=== PATIENT | male | born 1990 | race Asian ===

== ENCOUNTER 2019-01-02 00:55 | Inpatient (IN) | payer MEDICAID ==
[~2019-01-02] VITALS: Ht 170.2 cm; Wt 52.2 kg
[2019-01-02] VITALS (22 sets, daily range): BP systolic 97–135; BP diastolic 55–81
[2019-01-02] MEDS ORDERED: LEXAPRO10 MG ORAL (00:59)
[2019-01-02 01:35] LABS: EOSINOPHILS % (AUTO) 1.3 % (0.0-3.0); HEMATOCRIT 48.7 % (42.0-52.0); HEMOGLOBIN 16.5 G/DL (14.2-18.0); LYMPHOCYTES % (AUTO) 34.7 % (20.0-45.0); MEAN CORPUSCULAR VOLUME 90 FL (80-99); MONOCYTES % (AUTO) 9.2 % (1.0-10.0); NEUTROPHILS % (AUTO) 53.9 % (45.0-75.0); PLATELET COUNT 230 K/UL (150-450); RED CELL DISTRIBUTION WIDTH 11.9 % (11.6-14.8); WHITE BLOOD COUNT 8.5 K/UL (4.8-10.8)
[2019-01-02 01:45] LABS: ANION GAP 10 mmol/L (5-15); BLOOD UREA NITROGEN 10 mg/dL (7-18); CALCIUM 9.1 MG/DL (8.5-10.1); CARBON DIOXIDE 28 MMOL/L (21-32); CHLORIDE 101 MMOL/L (98-107); CREATININE 0.9 MG/DL (0.55-1.30); POTASSIUM 3.3 MMOL/L (3.5-5.1); SODIUM 139 MMOL/L (136-145)
[2019-01-02] MEDS ORDERED: Activated Charcoal 50gm/240ml Btl ORAL ONE (01:45)
[2019-01-02 01:50] LABS: ALANINE AMINOTRANSFERASE 84 U/L (12-78); ALBUMIN 4.4 G/DL (3.4-5.0); ALBUMIN/GLOBULIN RATIO 1.2 (1.0-2.7); ALKALINE PHOSPHATASE 69 U/L (46-116); ASPARTATE AMINO TRANSFERASE 26 U/L (15-37); BILIRUBIN,TOTAL 0.3 MG/DL (0.2-1.0)
[2019-01-02] MEDS ORDERED: D5W IV ONE ×3 (02:15→06:15)
[2019-01-02] MEDS ORDERED: ACETADOTE IV ONE ×3 (02:15→06:15)
--- NOTE | 2019-01-02 03:55 | Emergency Room Report ---
History of Present Illness General Chief Complaint: Behavioral Complaint Source: Patient, EMS Present Illness HPI 28-year-old male presents ED for evaluation. Brought in by EMS for reported overdose on Tylenol. He told his conference reservationist that he ingested about 15 tablets of Tylenol around 11 PM. States he was trying to hurt himself. Upon arrival patient denies any pain. Denies any abdominal pain. Denies any nausea or vomiting. Denies hearing voices. States that he takes Lexapro. Denies alcohol or drug use. No other aggravating relieving factors. Denies any other associated symptoms Allergies: Coded Allergies: No Known Allergies (Unverified , 01/02/19) Patient History Past Medical History: psych hx Past Surgical History: none Pertinent Family History: none Social History: Denies: smoking, alcohol use, drug use Immunizations: UTD Reviewed Nursing Documentation: PMH: Agreed; PSxH: Agreed Nursing Documentation-PM Past Medical History: No History, Except For History Of Psychiatric Problem: Yes Review of Systems All Other Systems: negative except mentioned in HPI Physical Exam Vital Signs Date Time Temp Pulse Resp B/P (MAP) Pulse Ox O2 Delivery O2 Flow Rate FiO2 01/02/19 00:53 97.9 88 14 132/81 98 Room Air Sp02 EP Interpretation: reviewed, normal General Appearance: no apparent distress, alert, GCS 15, non-toxic Head: normocephalic, atraumatic Eyes: bilateral eye normal inspection, bilateral eye PERRL ENT: hearing grossly normal, normal pharynx, no angioedema, normal voice Neck: full range of motion, supple/symm/no masses Respiratory: chest non-tender, lungs clear, normal breath sounds, speaking full sentences Cardiovascular #1: regular rate, rhythm, no edema Cardiovascular #2: 2+ carotid (R), 2+ carotid (L), 2+ radial (R), 2+ radial (L) , 2+ dorsalis pedis (R), 2+ dorsalis pedis (L) Gastrointestinal: normal bowel sounds, non tender, soft, non-distended, no guarding, no rebound Rectal: deferred Genitourinary: normal inspection, no CVA tenderness Musculoskeletal: back normal, gait/station normal, normal range of motion, non- tender Neurologic: alert, oriented x3, responsive, motor strength/tone normal, sensory intact, speech normal Psychiatric: depressed affect, anxious Suicide Risk Assessment: Suicidal Ideation: Yes Had intent to initiate attempt: Yes Pt's plan for suicide attempt: Yes Has means to complete attempt: Yes Reflexes: 3+ bicep (R), 3+ bicep (L), 3+ tricep (R), 3+ tricep (L), 3+ knee (R) , 3+ knee (L) Skin: normal color, no rash, warm/dry, well hydrated Lymphatic: no adenopathy Procedures Critical Care Time Critical Care Time i. I feel this is a highly complex case requiring extensive working including EKG/Rhythm strip, Xray/CT/US, Blood/urine lab work, repeat exams while in ED, and administration of strong opiates/narcotics for pain control, admission to hospital or close patient follow up. Total time: 45 min bedside evaluation and treatment excludes procedures (EKG). Reason for critical care: tylenol overdose Possible complications: hypotension, hypertension, GA, shock, arrhythmias, metabolic acidosis, end organ damage, respiratory failure. Interventions: labs, IVFS, charcoal. initiation of NAC. repeat tylenol levels. admission to ICU Course: Patient presenting status post overdose on Tylenol. Placed on 5150 by [employer]. given charcoal. Initial Tylenol level 110; started on NAC. IV hydration continued. discussion with admitting physicain for ICU care Consultations: nursing staff, EMS, family Performed by: Dr Fu Tolerated well condition = critical j. because of unstable vital signs this patient had a condition that could potentially threaten life or limb. I feel this is a critical patient who required my full attention while patient was considered critical. Total Critical Care Time excluding procedures was greater than 45 minutes Medical Decision Making Diagnostic Impression: Primary Impression: Tylenol overdose Qualified Codes: T39.1X2A - Poisoning by 4-aminophenol derivatives, intentional self-harm, initial encounter Additional Impression: Suicide attempt ER Course Hospital Course 28-year-old male presents to ED status post overdose on Tylenol. Differential diagnoses include: tylenol toxicity, alcohol intoxication, psychosis Clinical course She placed on stretcher. On awake overnight monitor. After initial history and physical ordered labs, IV fluids, charcoal Labs reviewed-electrolytes okay, leukocytosis, hemoglobin/hematocrit stable, initial tylenol level 110.utox negative. ETOH negative EKG - NSR, no acute ischemic changes interpreted by me NAC initiated in ED. patient on 5150 hold and cannot be medically cleared Poison control contacted case discussed with Dr. Morales and he agreed to accept the patient to his service for further care and support i. I feel this is a highly complex case requiring extensive working including EKG/Rhythm strip, Xray/CT/US, Blood/urine lab work, repeat exams while in ED, and administration of strong opiates/narcotics for pain control, admission to hospital or close patient follow up. Diagnosis - tylenol overdose, suicide attempt admitted to ICU in critical condition Labs Test 01/02/19 01:05 01/02/19 01:20 01/02/19 02:02 Urine Opiates Screen Negative (NEGATIVE) Urine Barbiturates Screen Negative (NEGATIVE) Phencyclidine (PCP) Screen Negative (NEGATIVE) Urine Amphetamines Screen Negative (NEGATIVE) Urine Benzodiazepines Screen Negative (NEGATIVE) Urine Cocaine Screen Negative (NEGATIVE) Urine Marijuana (THC) Screen Negative (NEGATIVE) White Blood Count 8.5 K/UL (4.8-10.8) Red Blood Count 5.40 M/UL (4.70-6.10) Hemoglobin 16.5 G/DL (14.2-18.0) Hematocrit 48.7 % (42.0-52.0) Mean Corpuscular Volume 90 FL (80-99) Mean Corpuscular Hemoglobin 30.5 PG (27.0-31.0) Mean Corpuscular Hemoglobin Concent 33.8 G/DL (32.0-36.0) Red Cell Distribution Width 11.9 % (11.6-14.8) Platelet Count 230 K/UL (150-450) Mean Platelet Volume 5.6 FL (6.5-10.1) Neutrophils (%) (Auto) 53.9 % (45.0-75.0) Lymphocytes (%) (Auto) 34.7 % (20.0-45.0) Monocytes (%) (Auto) 9.2 % (1.0-10.0) Eosinophils (%) (Auto) 1.3 % (0.0-3.0) Basophils (%) (Auto) 1.0 % (0.0-2.0) Sodium Level 139 MMOL/L (136-145) Potassium Level 3.3 MMOL/L (3.5-5.1) Chloride Level 101 MMOL/L (98-107) Carbon Dioxide Level 28 MMOL/L (21-32) Anion Gap 10 mmol/L (5-15) Blood Urea Nitrogen 10 mg/dL (7-18) Creatinine 0.9 MG/DL (0.55-1.30) Estimat Glomerular Filtration Rate > 60 mL/min (>60) Glucose Level 101 MG/DL (74-106) Calcium Level 9.1 MG/DL (8.5-10.1) Total Bilirubin 0.3 MG/DL (0.2-1.0) Aspartate Amino Transf (AST/SGOT) 26 U/L (15-37) Alanine Aminotransferase (ALT/SGPT) 84 U/L (12-78) Alkaline Phosphatase 69 U/L (46-116) Total Protein 8.2 G/DL (6.4-8.2) Albumin 4.4 G/DL (3.4-5.0) Globulin 3.8 g/dL Albumin/Globulin Ratio 1.2 (1.0-2.7) Salicylates Level 0.6 ug/mL (2.8-20) Acetaminophen Level 110 MCG/ML (10-30) Serum Alcohol < 3 mg/dL Arterial Blood pH 7.285 (7.350-7.450) Arterial Blood Partial Pressure CO2 46.5 mmHg (35.0-45.0) Arterial Blood Partial Pressure O2 58.7 mmHg (75.0-100.0) Arterial Blood HCO3 21.6 mmol/L (22.0-26.0) Arterial Blood Oxygen Saturation 87.9 % (95-100) Arterial Blood Base Excess -5.2 (-2-2) Arben Test Positive EKG Diagnostic Results Rate: normal Rhythm: NSR ST Segments: no acute changes ASA given to the pt in ED: No Rhythm Strip Diag. Results EP Interpretation: yes Rhythm: NSR, no PVC's, no ectopy Last Vital Signs Date Time Temp Pulse Resp B/P (MAP) Pulse Ox O2 Delivery O2 Flow Rate FiO2 01/02/19 01:02 88 14 Room Air 01/02/19 01:02 97.9 132/81 98 Status: improved Disposition: ADMITTED INPATIENT Condition: Critical Referrals: NOT CHOSEN IPA/,REFERRING (PCP) Gwyn Fu MD Jan 02, 2019 03:55
[2019-01-02 06:04] LABS: ANION GAP 13 mmol/L (5-15); BLOOD UREA NITROGEN 6 mg/dL (7-18); CALCIUM 8.2 MG/DL (8.5-10.1); CARBON DIOXIDE 23 MMOL/L (21-32); CHLORIDE 106 MMOL/L (98-107); CREATININE 0.7 MG/DL (0.55-1.30); POTASSIUM 3.6 MMOL/L (3.5-5.1); SODIUM 142 MMOL/L (136-145)
[2019-01-02] MEDS ORDERED: ACETADOTE IV SCH ×3 (07:00→11:00)
[2019-01-02] MEDS ORDERED: D5W IV SCH ×3 (07:00→11:00)
[2019-01-02] MEDS: Heparin 5000 units/ml inj SUBQ SCH ×2 (09:00→20:41)
--- NOTE | 2019-01-02 09:29 | Pulmonolgy Critical Care Note ---
Critical Care - Asmt/Plan Problems: (1) Tylenol overdose (2) Suicide attempt Respiratory: monitor respiratory rate Cardiac: continue to monitor HR/BP Renal: F/U I&O, check electrolytes Gastrointestinal: hold feedings Endocrine: monitor blood sugar Hematologic: monitor H/H, transfuse if hgb<8.5 Neurologic: PRN Ativan, PRN Morphine, keep patient comfortable Prophylaxis: Protonix, Heparin Discussed with: nurses, consultants, other - suicide precaution, psych evaluation Critical Care - Objective Last 24 Hour Vital Signs Date Time Temp Pulse Resp B/P (MAP) Pulse Ox O2 Delivery O2 Flow Rate FiO2 01/02/19 06:00 76 17 97/61 99 Room Air 01/02/19 05:27 Room Air 01/02/19 05:00 73 24 111/71 100 Room Air 01/02/19 04:36 Room Air 01/02/19 04:20 98.0 70 17 110/73 100 Room Air 01/02/19 04:20 62 01/02/19 04:10 98.0 74 16 135/80 100 Room Air 01/02/19 03:15 98.0 74 16 135/80 100 Room Air 01/02/19 01:02 88 14 Room Air 01/02/19 01:02 97.9 14 132/81 98 Room Air 01/02/19 00:53 97.9 88 14 132/81 98 Room Air Status: somnolent Condition: critical HEENT: atraumatic Neck: full ROM Heart: HR/BP stable Abdomen: soft, feeding tube Extremities: no C/C/E Micro: Microbiology Date/Time Source Procedure Growth Status 01/02/19 02:45 Rectum Received Critical Care - Subjective ROS Limited/Unobtainable: Yes ICU Day: 1 Interval Events: 28-year-old male presented to ED for reported overdose on Tylenol. He told his pipe installer that he ingested about 15 tablets of Tylenol around 11 PM. States he was trying to hurt himself. Upon arrival patient denies any pain. Denies any abdominal pain. Denies any nausea or vomiting. Denies hearing voices. States that he takes Lexapro. Denies alcohol or drug use. Poison control was contacted and treatment has been initiated. I&O: Intake and Output 01/01/19 01/02/19 18:59 06:59 Intake Total 0 ml Output Total 150 ml Balance -150 ml Intake Oral 0 ml Output Urine Total 150 ml # Voids 2 Labs: Laboratory Tests Test 01/02/19 01:05 01/02/19 01:20 01/02/19 02:02 01/02/19 05:15 Urine Opiates Screen Negative (NEGATIVE) Urine Barbiturates Screen Negative (NEGATIVE) Phencyclidine (PCP) Screen Negative (NEGATIVE) Urine Amphetamines Screen Negative (NEGATIVE) Urine Benzodiazepines Screen Negative (NEGATIVE) Urine Cocaine Screen Negative (NEGATIVE) Urine Marijuana (THC) Screen Negative (NEGATIVE) White Blood Count 8.5 K/UL (4.8-10.8) Red Blood Count 5.40 M/UL (4.70-6.10) Hemoglobin 16.5 G/DL (14.2-18.0) Hematocrit 48.7 % (42.0-52.0) Mean Corpuscular Volume 90 FL (80-99) Mean Corpuscular Hemoglobin 30.5 PG (27.0-31.0) Mean Corpuscular Hemoglobin Concent 33.8 G/DL (32.0-36.0) Red Cell Distribution Width 11.9 % (11.6-14.8) Platelet Count 230 K/UL (150-450) Mean Platelet Volume 5.6 FL (6.5-10.1) L Neutrophils (%) (Auto) 53.9 % (45.0-75.0) Lymphocytes (%) (Auto) 34.7 % (20.0-45.0) Monocytes (%) (Auto) 9.2 % (1.0-10.0) Eosinophils (%) (Auto) 1.3 % (0.0-3.0) Basophils (%) (Auto) 1.0 % (0.0-2.0) Sodium Level 139 MMOL/L (136-145) 142 MMOL/L (136-145) Potassium Level 3.3 MMOL/L (3.5-5.1) L 3.6 MMOL/L (3.5-5.1) Chloride Level 101 MMOL/L (98-107) 106 MMOL/L (98-107) Carbon Dioxide Level 28 MMOL/L (21-32) 23 MMOL/L (21-32) Anion Gap 10 mmol/L (5-15) 13 mmol/L (5-15) Blood Urea Nitrogen 10 mg/dL (7-18) 6 mg/dL (7-18) L Creatinine 0.9 MG/DL (0.55-1.30) 0.7 MG/DL (0.55-1.30) Estimat Glomerular Filtration Rate > 60 mL/min (>60) > 60 mL/min (>60) Glucose Level 101 MG/DL (74-106) 137 MG/DL (74-106) H Calcium Level 9.1 MG/DL (8.5-10.1) 8.2 MG/DL (8.5-10.1) L Total Bilirubin 0.3 MG/DL (0.2-1.0) Aspartate Amino Transf (AST/SGOT) 26 U/L (15-37) Alanine Aminotransferase (ALT/SGPT) 84 U/L (12-78) H Alkaline Phosphatase 69 U/L (46-116) Total Protein 8.2 G/DL (6.4-8.2) Albumin 4.4 G/DL (3.4-5.0) Globulin 3.8 g/dL Albumin/Globulin Ratio 1.2 (1.0-2.7) Salicylates Level 0.6 ug/mL (2.8-20) L Acetaminophen Level 110 MCG/ML (10-30) H 25 MCG/ML (10-30) Serum Alcohol < 3 mg/dL Arterial Blood pH 7.285 (7.350-7.450) Arterial Blood Partial Pressure CO2 46.5 mmHg (35.0-45.0) H Arterial Blood Partial Pressure O2 58.7 mmHg (75.0-100.0) L Arterial Blood HCO3 21.6 mmol/L (22.0-26.0) L Arterial Blood Oxygen Saturation 87.9 % (95-100) *L Arterial Blood Base Excess -5.2 (-2-2) L Arben Test Positive Brandon Zaragoza MD Jan 02, 2019 09:29
--- NOTE | 2019-01-02 15:54 | Cardiology Report ---
APPROVED REPORT EKG Measurement Heart [id number] Normal sinus rhythm Normal ECG
[2019-01-02] MEDS ORDERED: LORazepam Inj 2mg/ml 1ml IV PRN (17:30)
--- NOTE | 2019-01-02 20:15 | History and Physical Report ---
DATE OF ADMISSION: 01/02/2019 TIME SEEN: 2 p.m. CONSULTANTS: 1. Brandon Zaragoza M.D. 2. Elbert Padilla M.D. 3. Judith Viveros M.D. CHIEF COMPLAINT: Tylenol overdose. BRIEF HISTORY: This is a 28-year-old male who lives at home presents to [facility] last night with history of Tylenol overdose. Right now, he is calm in bed, sleepy in ICU. He admits to taking about 15 tablets. Not sure whether stomach. The patient was diagnosed with the above, admitted to ICU for further care. Currently, calm, lethargic in bed. No complaint. PAST MEDICAL HISTORY: Nothing. PAST SURGICAL HISTORY: Nothing. ALLERGIES: Denies. SOCIAL HISTORY: Positive smoking. No alcohol. No intravenous drug abuse. FAMILY HISTORY: Noncontributory. PHYSICAL EXAMINATION: GENERAL: Calm in bed, oriented x2, in no acute distress. VITAL SIGNS: Temperature 98 degrees, pulse 66, respirations 20, blood pressure 108/71. CARDIOVASCULAR: No murmurs. LUNGS: Distant and clear. ABDOMEN: Bowel sounds positive. Nontender. Nondistended. EXTREMITIES: Show no cyanosis or edema. NEUROLOGIC: Slight weakness x4. Otherwise moves all extremities. LABORATORY DATA: Labs at this time show CBC is normal. BMP shows glucose 137, otherwise normal. Normal urine tox. Salicylate 0.6. Tylenol level was 110, now is 25. MEDICATIONS: Include acetylcysteine, heparin, sodium, and IV fluids. ASSESSMENT: Tylenol overdose. PLAN: 1. IV fluids. 2. Detox acetylcysteine to nephrology dose. 3. Psych eval. 4. CBC, BMP in the morning. 5. We will continue to follow the patient. Dany Morales D.O. DR: FATIMAH JOB#: [id number] CC:
[2019-01-03] VITALS (21 sets, daily range): BP systolic 91–114; BP diastolic 35–74
[2019-01-03 03:26] LABS: BASOPHILS % (AUTO) 0.6 % (0.0-2.0); EOSINOPHILS % (AUTO) 1.4 % (0.0-3.0); HEMOGLOBIN 15.9 G/DL (14.2-18.0); LYMPHOCYTES % (AUTO) 25.4 % (20.0-45.0); MEAN CORPUSCULAR VOLUME 91 FL (80-99); MONOCYTES % (AUTO) 8.3 % (1.0-10.0); NEUTROPHILS % (AUTO) 64.2 % (45.0-75.0); PLATELET COUNT 211 K/UL (150-450); RED BLOOD COUNT 5.19 M/UL (4.70-6.10); RED CELL DISTRIBUTION WIDTH 11.7 % (11.6-14.8); WHITE BLOOD COUNT 7.5 K/UL (4.8-10.8)
[2019-01-03 03:48] LABS: ANION GAP 6 mmol/L (5-15); BLOOD UREA NITROGEN 4 mg/dL (7-18); CALCIUM 8.9 MG/DL (8.5-10.1); CARBON DIOXIDE 30 MMOL/L (21-32); CHLORIDE 104 MMOL/L (98-107); CREATININE 0.9 MG/DL (0.55-1.30); POTASSIUM 3.4 MMOL/L (3.5-5.1); SODIUM 140 MMOL/L (136-145)
[2019-01-03 03:49] LABS: ALANINE AMINOTRANSFERASE 69 U/L (12-78); ALBUMIN 3.5 G/DL (3.4-5.0); ALKALINE PHOSPHATASE 57 U/L (46-116); ASPARTATE AMINO TRANSFERASE 22 U/L (15-37); BILIRUBIN,DIRECT 0.1 MG/DL (0.0-0.3); BILIRUBIN,TOTAL 0.8 MG/DL (0.2-1.0)
--- NOTE | 2019-01-03 05:15 | Consultation ---
DATE OF CONSULTATION: 01/02/2019 PSYCHOTHERAPY CONSULTATION PROGRESS NOTE CONSULTING PHYSICIAN: Palma Cordero PsyD. TREATING ATTENDING PHYSICIAN: Dany Morales D.O. HISTORY OF PRESENT ILLNESS: The patient is a 28-year-old male patient. The patient was brought into the hospital for a Tylenol overdose. The patient states at this time. He has . The patient states that he had been having suicidal ideation. He had overdosed on several Tylenol pills, attempting to commit suicide. He states that he suicide again and and at this time remains on a psychiatric hold. The patient is severely depressed and he seems to have suicidal ideation and the patient is a psychiatric hold patient. The patient is unable to care for his safety at this time and I assessed the patient who is severely depressed and continued to require hospitalization for stabilization of his symptoms. PAST MEDICAL HISTORY: Includes a history of . ALLERGIES: The patient has no known drug allergies. SUBSTANCE ABUSE HISTORY: The patient denies history of alcohol use, illicit substance use, or smoking cigarettes. PSYCHIATRIC HISTORY: The patient has a history of depression and has been treated with psychotropic medications in the past. The patient . SOCIAL HISTORY: The patient is a 28-year-old male. The patient lives at home. MENTAL STATUS EXAMINATION: The patient . DIAGNOSES: Major depressive disorder, recurrent, severe without psychotic features. PLAN: I provided the patient with, 1. Cognitive behavioral therapy that is focused on feelings of depression. He has poor impulse control. 2. I provided the patient with supportive psychotherapy as well patient's feelings of helplessness, hopelessness, depression, . The patient will continue to remain on psychiatric hold . Palma Cordero PsyD. DR: TIA JOB#: [id number] CC:
--- NOTE | 2019-01-03 09:57 | General Progress Note ---
Assessment/Plan Problem List: (1) Tylenol overdose ICD Codes: T39.1X1A - Poisoning by 4-Aminophenol derivatives, accidental ( unintentional), initial encounter SNOMED: [id number] Qualifiers: Qualified Codes: T39.1X2A - Poisoning by 4-aminophenol derivatives, intentional self-harm, initial encounter (2) Suicide attempt ICD Codes: T14.91XA - Suicide attempt, initial encounter SNOMED: [id number] Status: unchanged Assessment/Plan: neph psyc follow up detox,cbc bmp am psyc transfer Subjective Constitutional: Reports: weakness Allergies: Coded Allergies: No Known Allergies (Unverified , 01/02/19) All Systems: reviewed and negative except above Subjective calm in bed in icu Objective Last 24 Hour Vital Signs Date Time Temp Pulse Resp B/P (MAP) Pulse Ox O2 Delivery O2 Flow Rate FiO2 01/03/19 04:00 Room Air 01/03/19 03:00 60 16 96/64 99 Room Air 01/03/19 02:00 61 17 106/71 98 Room Air 01/03/19 01:00 64 16 95/57 97 Room Air 01/03/19 00:00 Room Air 01/03/19 00:00 67 01/03/19 00:00 98.8 67 20 101/70 98 Room Air 01/02/19 23:00 67 20 109/73 99 Room Air 01/02/19 22:00 68 22 106/68 98 Room Air 01/02/19 21:00 69 20 108/64 98 Room Air 01/02/19 20:00 Room Air 01/02/19 20:00 69 01/02/19 20:00 98.6 69 19 106/66 98 Room Air 01/02/19 19:00 66 18 104/70 98 Room Air 01/02/19 18:00 65 20 102/66 97 Room Air 01/02/19 17:00 64 20 107/68 99 Room Air 01/02/19 16:00 66 01/02/19 16:00 Room Air 01/02/19 16:00 98.9 67 20 108/68 99 Room Air 01/02/19 15:00 72 20 104/65 99 Room Air 01/02/19 14:00 69 20 100/60 99 Room Air 01/02/19 13:00 66 20 108/71 99 Room Air 01/02/19 12:00 Room Air 01/02/19 12:00 98.6 76 17 110/72 99 Room Air 01/02/19 12:00 58 01/02/19 11:00 68 20 108/72 99 Room Air 01/02/19 10:00 68 17 105/55 99 Room Air Intake and Output 01/02/19 01/03/19 19:00 07:00 Intake Total 933.252 ml 280 ml Output Total 850 ml 1100 ml Balance 83.252 ml -820 ml Intake Oral 0 ml 0 ml IV Total 933.252 ml 280 ml Output Urine Total 850 ml 1100 ml # Voids 2 3 Laboratory Tests 01/03/19 03:10: White Blood Count 7.5, Red Blood Count 5.19, Hemoglobin 15.9, Hematocrit 47.0, Mean Corpuscular Volume 91, Mean Corpuscular Hemoglobin 30.6, Mean Corpuscular Hemoglobin Concent 33.8, Red Cell Distribution Width 11.7, Platelet Count 211, Mean Platelet Volume 5.3L, Neutrophils (%) (Auto) 64.2, Lymphocytes (%) (Auto) 25.4, Monocytes (%) (Auto) 8.3, Eosinophils (%) (Auto) 1.4, Basophils (%) (Auto ) 0.6, Activated Partial Thromboplast Time 29, Sodium Level 140, Potassium Level 3.4L, Chloride Level 104, Carbon Dioxide Level 30, Anion Gap 6, Blood Urea Nitrogen 4L, Creatinine 0.9, Estimat Glomerular Filtration Rate > 60, Glucose Level 99, Calcium Level 8.9, Total Bilirubin 0.8, Direct Bilirubin 0.1, Aspartate Amino Transf (AST/SGOT) 22, Alanine Aminotransferase (ALT/SGPT) 69, Alkaline Phosphatase 57, Total Protein 7.0, Albumin 3.5, Acetaminophen Level < 2L Height (Feet): 5 Height (Inches): 7.00 Weight (Pounds): 117 General Appearance: lethargic EENT: normal ENT inspection Neck: normal alignment Cardiovascular: normal peripheral pulses, normal rate, regular rhythm Respiratory/Chest: chest wall non-tender, lungs clear, normal breath sounds Abdomen: normal bowel sounds, non tender, soft Extremities: normal inspection Edema: no edema noted Arm (L), no edema noted Arm (R), no edema noted Leg (L), no edema noted Leg (R), no edema noted Pedal (L), no edema noted Pedal (R), no edema noted Generalized Neurologic: responsive, motor weakness Skin: normal pigmentation, warm/dry Dany Morales DO January 03, 2019 09:57
[2019-01-03] MEDS: Heparin 5000 units/ml inj SUBQ SCH ×2 (10:22→21:19)
--- NOTE | 2019-01-03 10:40 | Pulmonolgy Critical Care Note ---
Critical Care - Asmt/Plan Problems: (1) Tylenol overdose (2) Suicide attempt Respiratory: monitor respiratory rate, adjust FIO2, CXR Cardiac: continue pressors, continue to monitor HR/BP Renal: F/U I&O, keep IV fluid Infectious Disease: check cultures, continue antibiotics Gastrointestinal: continue feedings/current rate Endocrine: monitor blood sugar Hematologic: monitor H/H, transfuse if hgb<8.5 Neurologic: PRN Ativan, keep patient comfortable Affect: PRN ativan Prophylaxis: Protonix Time Spent (Minutes): 40 Notes Reviewed: public affairs director, renal Discussed with: nurses, consultants, casey saw 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 sterile processing - Objective Last 24 Hour Vital Signs Date Time Temp Pulse Resp B/P (MAP) Pulse Ox O2 Delivery O2 Flow Rate FiO2 01/03/19 10:00 62 19 111/71 98 Room Air 01/03/19 09:00 68 16 94/57 98 Room Air 01/03/19 08:00 68 01/03/19 08:00 62 19 111/71 98 Room Air 01/03/19 08:00 Room Air 01/03/19 07:00 98.2 62 19 95/73 98 Room Air 01/03/19 04:00 Room Air 01/03/19 03:00 60 16 96/64 99 Room Air 01/03/19 02:00 61 17 106/71 98 Room Air 01/03/19 01:00 64 16 95/57 97 Room Air 01/03/19 00:00 Room Air 01/03/19 00:00 67 01/03/19 00:00 98.8 67 20 101/70 98 Room Air 01/02/19 23:00 67 20 109/73 99 Room Air 01/02/19 22:00 68 22 106/68 98 Room Air 01/02/19 21:00 69 20 108/64 98 Room Air 01/02/19 20:00 Room Air 01/02/19 20:00 69 01/02/19 20:00 98.6 69 19 106/66 98 Room Air 01/02/19 19:00 66 18 104/70 98 Room Air 01/02/19 18:00 65 20 102/66 97 Room Air 01/02/19 17:00 64 20 107/68 99 Room Air 01/02/19 16:00 66 01/02/19 16:00 Room Air 01/02/19 16:00 98.9 67 20 108/68 99 Room Air 01/02/19 15:00 72 20 104/65 99 Room Air 01/02/19 14:00 69 20 100/60 99 Room Air 01/02/19 13:00 66 20 108/71 99 Room Air 01/02/19 12:00 Room Air 01/02/19 12:00 98.6 76 17 110/72 99 Room Air 01/02/19 12:00 58 01/02/19 11:00 68 20 108/72 99 Room Air Status: awake, sedated Condition: critical HEENT: atraumatic Neck: full ROM Lungs: clear Heart: HR/BP stable Abdomen: soft, active bowel sounds Decubiti: stage Micro: Microbiology Date/Time Source Procedure Growth Status 01/02/19 02:45 Rectum Received Critical Care - Subjective ROS Limited/Unobtainable: Yes Condition: critical IV Access: PICC EKG Rhythm: Sinus Tachycardia I&O: Intake and Output 01/02/19 01/03/19 18:59 06:59 Intake Total 968.252 ml 315 ml Output Total 850 ml 1100 ml Balance 118.252 ml -785 ml Intake Oral 0 ml 0 ml IV Total 968.252 ml 315 ml Output Urine Total 850 ml 1100 ml # Voids 2 3 Labs: Laboratory Tests Test 01/03/19 03:10 White Blood Count 7.5 K/UL (4.8-10.8) Red Blood Count 5.19 M/UL (4.70-6.10) Hemoglobin 15.9 G/DL (14.2-18.0) Hematocrit 47.0 % (42.0-52.0) Mean Corpuscular Volume 91 FL (80-99) Mean Corpuscular Hemoglobin 30.6 PG (27.0-31.0) Mean Corpuscular Hemoglobin Concent 33.8 G/DL (32.0-36.0) Red Cell Distribution Width 11.7 % (11.6-14.8) Platelet Count 211 K/UL (150-450) Mean Platelet Volume 5.3 FL (6.5-10.1) L Neutrophils (%) (Auto) 64.2 % (45.0-75.0) Lymphocytes (%) (Auto) 25.4 % (20.0-45.0) Monocytes (%) (Auto) 8.3 % (1.0-10.0) Eosinophils (%) (Auto) 1.4 % (0.0-3.0) Basophils (%) (Auto) 0.6 % (0.0-2.0) Activated Partial Thromboplast Time 29 SEC (23-33) Sodium Level 140 MMOL/L (136-145) Potassium Level 3.4 MMOL/L (3.5-5.1) L Chloride Level 104 MMOL/L (98-107) Carbon Dioxide Level 30 MMOL/L (21-32) Anion Gap 6 mmol/L (5-15) Blood Urea Nitrogen 4 mg/dL (7-18) L Creatinine 0.9 MG/DL (0.55-1.30) Estimat Glomerular Filtration Rate > 60 mL/min (>60) Glucose Level 99 MG/DL (74-106) Calcium Level 8.9 MG/DL (8.5-10.1) Total Bilirubin 0.8 MG/DL (0.2-1.0) Direct Bilirubin 0.1 MG/DL (0.0-0.3) Aspartate Amino Transf (AST/SGOT) 22 U/L (15-37) Alanine Aminotransferase (ALT/SGPT) 69 U/L (12-78) Alkaline Phosphatase 57 U/L (46-116) Total Protein 7.0 G/DL (6.4-8.2) Albumin 3.5 G/DL (3.4-5.0) Acetaminophen Level < 2 MCG/ML (10-30) L Brandon Zaragoza MD January 03, 2019 10:40
[2019-01-03] MEDS ORDERED: NS 500ML ONE (18:02)
[2019-01-04] VITALS (12 sets, daily range): BP systolic 87–116; BP diastolic 52–83
[2019-01-04 04:59] LABS: BASOPHILS % (AUTO) 1.3 % (0.0-2.0); EOSINOPHILS % (AUTO) 1.9 % (0.0-3.0); HEMATOCRIT 45.7 % (42.0-52.0); HEMOGLOBIN 15.9 G/DL (14.2-18.0); LYMPHOCYTES % (AUTO) 27.1 % (20.0-45.0); MEAN CORPUSCULAR VOLUME 91 FL (80-99); MONOCYTES % (AUTO) 9.2 % (1.0-10.0); NEUTROPHILS % (AUTO) 60.6 % (45.0-75.0); PLATELET COUNT 224 K/UL (150-450); RED BLOOD COUNT 5.03 M/UL (4.70-6.10); RED CELL DISTRIBUTION WIDTH 11.8 % (11.6-14.8); WHITE BLOOD COUNT 7.2 K/UL (4.8-10.8)
[2019-01-04 05:14] LABS: ANION GAP 7 mmol/L (5-15); BLOOD UREA NITROGEN 12 mg/dL (7-18); CALCIUM 8.8 MG/DL (8.5-10.1); CARBON DIOXIDE 29 MMOL/L (21-32); CHLORIDE 105 MMOL/L (98-107); CREATININE 0.9 MG/DL (0.55-1.30); POTASSIUM 3.6 MMOL/L (3.5-5.1); SODIUM 141 MMOL/L (136-145)
[2019-01-04] MEDS: Heparin 5000 units/ml inj SUBQ SCH (08:41)
[2019-01-04] MEDS ORDERED: LORazepam Inj 2mg/ml 1ml IV PRN (10:00)
--- NOTE | 2019-01-04 11:41 | Pulmonology Progress Note ---
Assessment/Plan Problems: (1) Suicide attempt (2) Tylenol overdose Assessment/Plan medically cleared awaiting psych Subjective ROS Limited/Unobtainable: No Constitutional: Reports: no symptoms HEENT: Repors: no symptoms Allergies: Coded Allergies: No Known Allergies (Unverified , 01/02/19) Objective Last 24 Hour Vital Signs Date Time Temp Pulse Resp B/P (MAP) Pulse Ox O2 Delivery O2 Flow Rate FiO2 01/04/19 09:00 98.1 61 20 93/57 99 Room Air 01/04/19 08:00 65 21 87/60 100 Room Air 01/04/19 08:00 Room Air 01/04/19 08:00 85 01/04/19 07:00 60 17 93/65 97 Room Air 01/04/19 06:00 60 17 90/52 97 Room Air 01/04/19 05:00 61 17 90/53 97 Room Air 01/04/19 04:00 98.6 63 16 91/59 97 Room Air 01/04/19 04:00 63 01/04/19 04:00 Room Air 01/04/19 03:00 64 17 91/61 97 Room Air 01/04/19 02:00 68 20 93/60 97 Room Air 01/04/19 01:00 70 23 94/57 98 Room Air 01/04/19 00:00 98.2 75 23 116/83 98 Room Air 01/04/19 00:00 75 01/04/19 00:00 Room Air 01/03/19 23:00 78 18 114/74 99 Room Air 01/03/19 22:00 66 21 102/64 99 Room Air 01/03/19 21:00 67 18 96/58 99 Room Air 01/03/19 20:00 98.8 71 18 104/65 98 Room Air 01/03/19 20:00 Room Air 01/03/19 20:00 71 01/03/19 19:00 72 16 97/65 100 Room Air 01/03/19 18:00 69 16 96/55 98 Room Air 01/03/19 17:00 67 19 91/55 98 Room Air 01/03/19 16:00 98.7 68 19 108/72 99 Room Air 01/03/19 16:00 Room Air 01/03/19 16:00 68 01/03/19 15:00 67 19 99/62 98 Room Air 01/03/19 14:00 69 19 102/35 98 Room Air 01/03/19 13:00 67 19 104/67 98 Room Air 01/03/19 12:00 65 01/03/19 12:00 Room Air 01/03/19 12:00 98.6 64 19 99/63 98 Room Air Intake and Output 01/03/19 01/04/19 19:00 07:00 Intake Total 345 ml 1040 ml Output Total 1000 ml 640 ml Balance -655 ml 400 ml Intake Oral 100 ml 620 ml IV Total 245 ml 420 ml Output Urine Total 1000 ml 640 ml # Voids 4 General Appearance: WD/WN HEENT: normocephalic, atraumatic Respiratory/Chest: chest wall non-tender, lungs clear Cardiovascular: normal peripheral pulses, normal rate Abdomen: normal bowel sounds, soft, non tender Genitourinary: normal external genitalia Microbiology Date/Time Source Procedure Growth Status 01/02/19 02:45 Nasal Nares MRSA Culture - Final NO METHICILLIN RESISTANT STAPH AUREUS... Complete 01/02/19 02:45 Rectum - Final NO CARBAPENEM-RESISTANT ENTEROBACTERI... Complete 01/02/19 02:45 Rectum VRE Culture - Final NO VANCOMYCIN RESISTANT ENTEROCOCCUS ... Complete Laboratory Tests 01/04/19 04:00: White Blood Count 7.2, Red Blood Count 5.03, Hemoglobin 15.9, Hematocrit 45.7, Mean Corpuscular Volume 91, Mean Corpuscular Hemoglobin 31.6H, Mean Corpuscular Hemoglobin Concent 34.8, Red Cell Distribution Width 11.8, Platelet Count 224, Mean Platelet Volume 5.7L, Neutrophils (%) (Auto) 60.6, Lymphocytes (%) (Auto) 27.1, Monocytes (%) (Auto) 9.2, Eosinophils (%) (Auto) 1.9, Basophils (%) (Auto ) 1.3, Sodium Level 141, Potassium Level 3.6, Chloride Level 105, Carbon Dioxide Level 29, Anion Gap 7, Blood Urea Nitrogen 12, Creatinine 0.9, Estimat Glomerular Filtration Rate > 60, Glucose Level 102, Calcium Level 8.8 Current Medications Medications (Trade) Dose Ordered Sig/Rere Route PRN Reason Start Time Stop Time Status Last Admin Dose Admin Heparin Sodium (Porcine) (Heparin 5000 units/ml) 5,000 units EVERY 12 HOURS SUBQ 01/04/19 21:00 02/01/19 08:59 Lorazepam (Ativan 2mg/ml 1ml) 1 mg Q6H PRN IV For Anxiety 01/04/19 10:00 01/09/19 09:59 Brandon Zaragoza MD January 04, 2019 11:41
--- NOTE | 2019-01-04 13:56 | General Progress Note ---
Assessment/Plan Problem List: (1) Tylenol overdose ICD Codes: T39.1X1A - Poisoning by 4-Aminophenol derivatives, accidental ( unintentional), initial encounter SNOMED: [id number] Qualifiers: Qualified Codes: T39.1X2A - Poisoning by 4-aminophenol derivatives, intentional self-harm, initial encounter (2) Suicide attempt ICD Codes: T14.91XA - Suicide attempt, initial encounter SNOMED: [id number] Status: stable, progressing Assessment/Plan: neph psyc follow up detox, psyc transfer Subjective Constitutional: Reports: weakness Allergies: Coded Allergies: No Known Allergies (Unverified , 01/02/19) All Systems: reviewed and negative except above Subjective calm in bed Objective Last 24 Hour Vital Signs Date Time Temp Pulse Resp B/P (MAP) Pulse Ox O2 Delivery O2 Flow Rate FiO2 01/04/19 12:00 98.3 64 19 94/61 (72) 100 01/04/19 09:00 98.1 61 20 93/57 99 Room Air 01/04/19 08:00 65 21 87/60 100 Room Air 01/04/19 08:00 Room Air 01/04/19 08:00 85 01/04/19 07:00 60 17 93/65 97 Room Air 01/04/19 06:00 60 17 90/52 97 Room Air 01/04/19 05:00 61 17 90/53 97 Room Air 01/04/19 04:00 98.6 63 16 91/59 97 Room Air 01/04/19 04:00 63 01/04/19 04:00 Room Air 01/04/19 03:00 64 17 91/61 97 Room Air 01/04/19 02:00 68 20 93/60 97 Room Air 01/04/19 01:00 70 23 94/57 98 Room Air 01/04/19 00:00 98.2 75 23 116/83 98 Room Air 01/04/19 00:00 75 01/04/19 00:00 Room Air 01/03/19 23:00 78 18 114/74 99 Room Air 01/03/19 22:00 66 21 102/64 99 Room Air 01/03/19 21:00 67 18 96/58 99 Room Air 01/03/19 20:00 98.8 71 18 104/65 98 Room Air 01/03/19 20:00 Room Air 01/03/19 20:00 71 01/03/19 19:00 72 16 97/65 100 Room Air 01/03/19 18:00 69 16 96/55 98 Room Air 01/03/19 17:00 67 19 91/55 98 Room Air 01/03/19 16:00 98.7 68 19 108/72 99 Room Air 01/03/19 16:00 Room Air 01/03/19 16:00 68 01/03/19 15:00 67 19 99/62 98 Room Air 01/03/19 14:00 69 19 102/35 98 Room Air Intake and Output 01/03/19 01/04/19 19:00 07:00 Intake Total 345 ml 1040 ml Output Total 1000 ml 640 ml Balance -655 ml 400 ml Intake Oral 100 ml 620 ml IV Total 245 ml 420 ml Output Urine Total 1000 ml 640 ml # Voids 4 Laboratory Tests 01/04/19 04:00: White Blood Count 7.2, Red Blood Count 5.03, Hemoglobin 15.9, Hematocrit 45.7, Mean Corpuscular Volume 91, Mean Corpuscular Hemoglobin 31.6H, Mean Corpuscular Hemoglobin Concent 34.8, Red Cell Distribution Width 11.8, Platelet Count 224, Mean Platelet Volume 5.7L, Neutrophils (%) (Auto) 60.6, Lymphocytes (%) (Auto) 27.1, Monocytes (%) (Auto) 9.2, Eosinophils (%) (Auto) 1.9, Basophils (%) (Auto ) 1.3, Sodium Level 141, Potassium Level 3.6, Chloride Level 105, Carbon Dioxide Level 29, Anion Gap 7, Blood Urea Nitrogen 12, Creatinine 0.9, Estimat Glomerular Filtration Rate > 60, Glucose Level 102, Calcium Level 8.8 Height (Feet): 5 Height (Inches): 7.00 Weight (Pounds): 115 General Appearance: lethargic EENT: normal ENT inspection Neck: normal alignment Cardiovascular: normal peripheral pulses, normal rate, regular rhythm Respiratory/Chest: chest wall non-tender, lungs clear, normal breath sounds Abdomen: normal bowel sounds, non tender, soft Extremities: normal inspection Edema: no edema noted Arm (L), no edema noted Arm (R), no edema noted Leg (L), no edema noted Leg (R), no edema noted Pedal (L), no edema noted Pedal (R), no edema noted Generalized Neurologic: responsive, motor weakness Skin: normal pigmentation, warm/dry Dany Morales DO January 04, 2019 13:56
[2019-01-04] MEDS ORDERED: HEPARIN SO5000 UNIT2 SUBQ (17:09)
[2019-01-04] MEDS ORDERED: LORAZEPAM4 MG/1 M1 IV ×2 (17:10→17:13)
[2019-01-04] MEDS ORDERED: Heparin 5000 units/ml inj SUBQ SCH (21:00)
--- NOTE | 2019-01-05 08:01 | Discharge Summary ---
Discharge Summary Discharge Summary _ DATE OF ADMISSION: 01/02/2019 DATE OF DISCHARGE: 01/04/2019 DISCHARGED BY: Dr. Dany Morales CONSULTANTS: Dr. Brandon Cordero PsyD BRIEF HOSPITAL COURSE: Patient is a 28-year-old male, who lives at home, presented to ED because of Tylenol overdose. He told his calender wind up tender that he ingested about 15 tablets of Tylenol. He was trying to hurt himself. He denied abdominal pain, denied any nausea or vomiting. Denied hearing voices. He usually takes Lexapro. He denied alcohol or drug use. On evaluation at the ED, vital signs were stable. Blood work was essentially unremarkable. AST was normal, ALT was elevated to 84. Tylenol level was elevated to 110. Salicylate and serum alcohol were negative. Urine toxicology screen negative. EKG was in normal sinus rhythm with no acute changes. Poison control was contacted. Patient was placed on 5150 hold. He was then admitted to ICU for evaluation and management of Tylenol overdose with suicide attempt. He was diagnosed with major depressive disorder, recurrent severe, without psychotic features. He was provided cognitive behavioral therapy. He was given acetylcysteine. Acetaminophen level down trended. LFTs normalized. Potassium was repleted. Patient was medically cleared. He was then transferred to [facility] psychiatric unit. FINAL DIAGNOSES: Tylenol overdose Suicide attempt Major depressive disorder, recurrent, severe, without psychotic features DISPOSITION: Patient was transferred to a psychiatric unit. DISCHARGE MEDICATIONS: Refer to Discharge Medication List. I have been assigned to complete a discharge summary on this account, I was not involved with the patient's management. Marla Acevedo NP January 05, 2019 08:01
== END 2019-01-04 18:00 | DRG 817 ==
LOC: EDBD 00:55 → EMR 01:20 → ICU 02:24 → EDBEDREQ 03:37 → 3E 01-04 09:49
DX: T39.1X2A Poisoning by 4-Aminophenol derivatives, intentional self-harm, initial encounter (principal); F33.2 Major depressive disorder, recurrent severe without psychotic features; Y92.009 Unspecified place in unspecified non-institutional (private) residence as the place of occurrence of the external cause
CPT/HCPCS: 36415; 36600; 80048; 80053; 80076; 80307; 80329; 82803; 85025; 85730; 87081; 93005; 96361; 96365; 96366; 97803; 99291; J8499